=== PATIENT | female | born 1960 | race Caucasian/White ===

== ENCOUNTER → 2016-10-30 | Outpatient (CLI) | payer OTHER ==
[~2016-10-30] MED LIST: BENZONATATE PO; KLONOPIN1 MG PO; LEVAQUIN PO; OMEGA 3 FISH1 CAP.EC PO; PAROXETINE HCL10 MG PO; PAXIL PO; PRAVASTATIN SOD40 MG PO
--- NOTE | ~2016-10-30 | CR243 ---
[facility] A Service of [facility] RADIOLOGY TEXT RESULTS PATIENT: DRAIAN VENTURA LOCATION: [facility] : 58 UNIT #: [id number] AGE: [address]: Abraham Reilly MD SEX: F ORDER DR: [id number] [place] [id number] O MR#: [id number] Acc #: [id number] NAME: DARIAN VENTURA : 1960 SEX: F STUDY DATE/TIME: 10/30/2016 9:54 UNIT: [facility] ROOM: STUDY DESCRIPTION: CR Thoracic Spine 3 Views Attending Physician: Abraham Reilly M.D. Referring Physician: Abraham Reilly M.D. Ordering Physician: Abraham Reilly M.D. Primary Care Physician: Abraham Reilly M.D. MEDICAL IMAGING REPORT This report is preliminary unless electronic signature is present. EXAM Thoracic spine plain films HISTORY Back pain upper back for 6 months. No known injury in a 56-year-old female. TECHNIQUE AP, lateral and swimmer's views of the thoracic spine are reviewed. COMPARISON STUDIES There is no prior. FINDINGS There is mild dextroconvex thoracic scoliosis. Mid thoracic endplate spondylosis anteriorly noted but nothing to suggest acute appearing compression fracture. Sagittal alignment essentially normal. Lung volumes are low. There is likely atelectasis. Heart size not well evaluated on the thoracic spine series. Surgical clips right upper quadrant. IMPRESSION 1. There is mild dextroconvex thoracic scoliosis. Mild mid-thoracic anterior endplate spondylosis but nothing to suggest compression fracture or bone destruction. 2. Lung volumes are low. There is probably bilateral atelectasis. Cardiac silhouette size is poorly evaluated. Dictated by... Anh Handley M.D. [facility] A Service [facility] RADIOLOGY TEXT RESULTS PATIENT: DARIAN VENTURA LOCATION: [facility] : 58 UNIT #: [id number] AGE: [address]: Abraham Reilly MD SEX: F ORDER DR: THIS IS AN ELECTRONICALLY VERIFIED REPORT Anh Handley M.D. at 10/31/2016 1:35 PM SAC/pcl TD: 10/31/2016 00:24 JOB #: [id number] MEDICAL IMAGING REPORT Page 1 of 1
--- NOTE | ~2016-10-30 | MY11 ---
[facility]. [facility] A Service of [facility] RADIOLOGY TEXT RESULTS PATIENT: DARIAN VENTURA LOCATION: [facility] : 58 UNIT #: [id number] AGE: [address]: Abraham Reilly MD SEX: F ORDER DR: [id number] [address] [address] [id number] O MR#: [id number] Acc #: [id number] NAME: DARIAN VENTURA : 1960 SEX: F STUDY DATE/TIME: 10/30/2016 10:25 UNIT: [facility] ROOM: STUDY DESCRIPTION: MY Mammogram Screening Dig Farshad Attending Physician: Abraham Reilly M.D. Referring Physician: Abraham Reilly M.D. Ordering Physician: Abraham Reilly M.D. Primary Care Physician: Abraham Reilly M.D. MEDICAL IMAGING REPORT This report is preliminary unless electronic signature is present. EXAM Digital screening mammogram, 10/30/2016, [facility]. HISTORY 56-year-old woman positive family history, sister age 52. Previous stereotactic-guided right breast biopsy. Annual screen. COMPARISON Mammograms date to 08/26/2009 with most recent 07/02/2015. FINDINGS Digital imaging of each breast was completed utilizing a two-view examination of each breast in craniocaudal and mediolateral-oblique projections. Review and interpretation of digital mammograms include a second review in conjunction with FDA-approved CAD device. There is a normal parenchymal presentation bilaterally consistent with the patient's age. There are no breast masses imaged and no parenchymal asymmetry is visualized. There are no suspicious microcalcifications and I see no focal architectural disturbance. IMPRESSION Negative screening digital mammogram. One-year followup recommended. Patients over the age of 40 are entered into a reminder system with target due date for the next mammogram. A result letter will also be sent to the patient. BIRADS: 1 Negative ADDENDUM Image-guided biopsy marker right subareolar location stable. [facility] A Service [facility] RADIOLOGY TEXT RESULTS PATIENT: DARIAN VENTURA LOCATION: [facility] #: [id number] : 58 UNIT #: [id number] AGE: [address]: Abraham Reilly MD SEX: F ORDER DR: Dictated by... Alan Blanco M.D. THIS IS AN ELECTRONICALLY VERIFIED REPORT Alan Blanco M.D. at 11/01/2016 8:06 AM VALDO/tee TD: 10/30/2016 18:29 JOB #: [id number] MEDICAL IMAGING REPORT Page 1 of 1
== END | disposition home or self-care (01) ==
LOC: SMAM 10-27 13:15 → SRAD 09:24 → SMAM 10:00
DX: Z12.31 Encounter for screening mammogram for malignant neoplasm of breast (principal); M54.9 Dorsalgia, unspecified; M41.9 Scoliosis, unspecified; M47.894 Other spondylosis, thoracic region; Z80.3 Family history of malignant neoplasm of breast
CPT/HCPCS: 72072; G0202